=== PATIENT | female | born 1970 | race Caucasian/White ===

== ENCOUNTER → 2017-08-23 | Outpatient (CLI) | payer MEDICARE, OTHER ==
--- NOTE | 2017-08-23 19:08 | WOMENS IMAGING REPORT ---
EXAM DESCRIPTION: 3D SCREENING MAMMO BILAT COMPLETED DATE/TIME: 08/23/2017 11:35 am REASON FOR STUDY: SCREENING MAMMO Z12.31 ENCNTR SCREEN MAMMOGRAM FOR MALIGNANT NEOPLASM OF YOON COMPARISON: 2014 TECHNIQUE: Standard craniocaudal and mediolateral oblique views of each breast recorded using digita l acquisition and breast tomosynthesis. LIMITATIONS: None. FINDINGS: No masses, calcifications or architectural distortion. No areas of suspicion. Read with the assistance of CAD. .[facility] - R2 Cenova Version 1.3 .[facility] - R2 Cenova Version 1.3 .[facility] - R2 Cenova Version 2.4 .[facility] [place] R2 Cenova Version 2.4 .[facility] - R2 Yarn Rewinder Version 9.2 IMPRESSION: NORMAL MAMMOGRAM. BIRADS 1. BREAST DENSITY: c. The breasts are heterogeneously dense, which may obscure small masses. BIRAD: 1 NEGATIVE RECOMMENDATION: ROUTINE SCREENING Please continue yearly bilateral screening tomosynthesis in August 2018 COMMENT: The patient has been notified of the results by letter per SA requirements. Additional no tification policies are in place for contacting patient with suspicious or incomplete findings. Quality ID #[id number]: The [employer] recommends an annual screening mammogram for women aged 40 years or over. This facility utilizes a reminder system to ensure that all patients receive reminder letters, and/or direct phone calls for appointments. This includes reminders for routine scr eening mammograms, diagnostic mammograms, or other Breast Imaging Interventions when appropriate. Th is patient will be placed in the appropriate reminder system. The [employer] (ACR) has developed recommendations for screening MRI of the breast s in certain patient populations, to be used in conjunction with mammography. Breast MRI surveillanc e may be appropriate for women with more than 20% lifetime risk of developing breast cancer as deter mined by genetic testing, significant family history of the disease, or history of mantle radiation f or Hodgkins Disease. ACR Practice Guidelines 2008. DBT Technology DBT is a type of tomographic mammography. With conventional mammography, overlapping breast tissue ma y make lesions difficult to detect, even with good compression. DBT uses an x-ray tube that rotates a round the breast, taking images at different angles. These images are then combined to create thin sl ices of the breast that the radiologist can view as a 3D reconstruction. The [employer] unit can perform full-field digital mammograms (2D imaging); or DBT (3D imaging); or both, in a combination mode that quickly performs both the mammogram and the tomosynthesis scan while the breast is still compressed. PQRS 6045F: Fluoroscopic imaging is not utilized for breast tomosynthesis. TECHNICAL DOCUMENTATION: FINDING NUMBER: (1) ASSESSMENT: (1) JOB ID: [id number] [employer]- All Rights Reserved
== END ==
LOC: WI 11:12
PROVIDERS: ATTEND Nurse Practitioner Family
DX: Z12.31 Encounter for screening mammogram for malignant neoplasm of breast (principal)
CPT/HCPCS: 77063; G0202; 77067

== ENCOUNTER 2018-06-30 10:18 | Emergency (ER) | payer MEDICARE ==
--- NOTE | 2018-06-30 11:46 | RADIOLOGY REPORT (SQ) ---
EXAM DESCRIPTION: ANKLE LEFT COMPLETE COMPLETED DATE/TIME: 06/30/2018 10:50 am REASON FOR STUDY: Left ankle injury fell, painful flexion at the ankle COMPARISON: None. NUMBER OF VIEWS: Three views. TECHNIQUE: AP, lateral, and oblique radiographic images acquired of the left ankle. LIMITATIONS: None. FINDINGS: MINERALIZATION: Normal. BONES: No acute fracture or dislocation. No worrisome bone lesions. JOINTS: No effusions. SOFT TISSUES: Mild lateral soft tissue swelling. No foreign body. OTHER: No other significant finding. IMPRESSION: No acute fracture or malalignment TECHNICAL DOCUMENTATION: JOB ID: [id number] [employer]- All Rights Reserved Reading location - IP/workstation name: [email or web address]
[2018-06-30] MEDS ORDERED: HYDROCODONE/ACETAMINOPHEN 5-325 MG (6 TAB/ER DISP) PO PRN (12:14)
--- NOTE | 2018-06-30 12:15 | ER Document Report ---
HPI - HPI Pain Level: 3 Notes: Patient presents with chief complaint of left ankle pain times 1 day. Patient reports she had an object fall on her ankle. Patient complains of ankle pain and swelling at this time. - REPRODUCTIVE Reproductive: DENIES: : Past Medical History - General Information source: Patient - Social History Smoking Status: Never Smoker Lives with: Family Family History: None GI Medical History: Reports: Hx Gastroesophageal Reflux Disease Psychiatric Medical History: Reports: Hx Anxiety, Hx Depression - anxiety, insomnia Past Surgical History: Reports: Hx Orthopedic Surgery - right hip scope - Immunizations Hx Diphtheria, Pertussis, Tetanus Vaccination: Yes - unknown Vertical Provider Document - CONSTITUTIONAL Notes: PHYSICAL EXAMINATION: GENERAL: Well-appearing, well-nourished and in no acute distress. HEAD: Atraumatic, normocephalic. EYES: Pupils equal round extraocular movements intact, conjunctiva are normal. ENT: Nares patent NECK: Normal range of motion LUNGS: No respiratory distress Musculoskeletal: Mild swelling and ecchymosis noted to left ankle. Capillary refill less than 3 seconds, normal motor and sensation distal to injury. NEUROLOGICAL: Normal speech. PSYCH: Normal mood, normal affect. SKIN: Warm, Dry, normal turgor, no rashes or lesions noted. - INFECTION CONTROL TRAVEL OUTSIDE OF THE [place] IN LAST 30 DAYS: No Course - Re-evaluation Re-evalutation: X-rays negative for any acute findings. Patient placed in ankle stirrup splint. Offered crutches but patient declined as she states that she has a history of a surgery to the left ankle and will not be able to bear weight appropriately on crutches. Patient reports that she has a wheelchair at home she can use. Patient to follow-up with orthopedics if pain not improving over the next 7-10 days. - Vital Signs Vital signs: Temp Pulse Resp BP Pulse Ox 98.6 F 103 H 16 149/97 H 100 06/30/18 10:21 06/30/18 10:21 06/30/18 10:21 06/30/18 10:21 06/30/18 10:21 Procedures - Immobilization Left ankle Pre-Proc Neuro Vasc Exam: Normal Immobilizer type: Ankle stirrup Post-Proc Neuro Vasc Exam: Normal Discharge - Discharge Clinical Impression: Ankle sprain Qualifiers: Encounter type: initial encounter Involved ligament of ankle: unspecified ligament Laterality: left Qualified Code(s): S93.402A - Sprain of unspecified ligament of left ankle, initial encounter Condition: Stable Disposition: HOME, SELF-CARE Additional Instructions: SPRAINED ANKLE: Your sprained ankle results from stretching or tearing of the ligaments which support the ankle. This usually results from twisting the foot inward and under. The ligaments will require time and protection in order to heal properly. Many ankle sprains are quite disabling, and should be taken seriously. The usual treatment for an ankle sprain is cold packs; protection with tape , splints, or wraps; elevation; and staying off the ankle for at least a day. As the ankle improves, you can walk IF it's not painful to bear weight. Sports are best postponed until healing is complete. More serious sprains usually require strengthening exercises after early healing. Your physician has assessed the seriousness of the ligament injury to your ankle. However, the treatment may change, depending on how your ankle progresses. If further exams were recommended, it is important that you follow through. Call the doctor if your foot becomes numb, painful, or severely swollen. ANKLE STIRRUP SPLINT: You are to use an ankle brace called a stirrup splint. This type of brace allows you to place greater stresses on the ankle without risk of re-injury, and is often used for more severe ankle injuries such as avulsion fractures and ligament ruptures. The splint can be worn over a sock or tape. For proper support, wear the splint with a shoe over it. It's important that the splint fit properly. Adjust the heel tension, if needed. If your splint has air bladders, peel back the bottom of each air bladder, then move the Velcro attachment of the heel strap up or down. Air bladder pressure can be adjusted by pulling up the valve at the top, threading the air tube down into the main bladder, then blowing air into the bladder or squeezing it out. The two sides of the stirrup can be moved forward or back on your ankle by changing the attachment of the main straps. If you are unable to use the ankle comfortably in the splint, return for re -evaluation. ICE & ELEVATION: Apply ice packs frequently against the painful area. Many different schedules are recommended, such as "20 minutes on, 20 minutes off" or "one hour ice, two hours rest." If you need to work, you may need to go longer between ice treatments. You should plan to have the area ice packed AT LEAST one- fourth of the time. The ice should be applied over the wrap, tape, or splint, or over a layer of cloth -- not directly against the skin. Some ice bags have a built-in cloth and can be put directly on the skin. Your injured part should be elevated as much as possible over the next 48 hours. Try to keep the injury above the level of the heart. Avoid use of the injured area. Elevation and rest will decrease the swelling. USE OF [id number] IBUPROFEN: Ibuprofen (Advil, Nuprin, Medipren, Motrin IB) is a medication for fever and pain control. In addition, it has anti- inflammatory effects which may be beneficial, especially in the treatment of injuries. It's best to take ibuprofen with food. Persons with ulcer disease or allergy to aspirin should notify their physician of this before taking ibuprofen. Ibuprofen can be given every four to six hours, for a total of four doses daily. Age Pain or fever dose Antiinflammatory dose 15-adult 400 mg (2 tab) 600 mg (3 tab) ORAL NARCOTIC MEDICATION: You have been given a prescription for pain control. This medication is a narcotic. It's best taken with food, as nausea can result if taken on an empty stomach. Don't operate machinery or drive within six hours of taking this medication. Do not combine this medicine with alcohol, or with any medication which can cause sedation (such as cold tablets or sleeping pills) unless you get permission from the physician. Narcotics tend to cause constipation. If possible, drink plenty of fluids and eat a diet high in fiber and fruits. Please be aware that prescription narcotics also have the potential for abuse. People become addicted to these medications because of the general sense of wellbeing that they induce. This feeling along with a significant reduction in tension, anxiety, and aggression provides a stimulating seductive quality to these drugs. Once your pain is under control, we encourage you to discard your unused narcotics. FOLLOW-UP CARE: If you have been referred to a physician for follow-up care, call the physician s office for an appointment as you were instructed or within the next two days. If you experience worsening or a significant change in your symptoms, notify the physician immediately or return to the Emergency Department at any time for re-evaluation.
[2018-06-30 12:45] VITALS: BP 153/102
== END 2018-06-30 12:45 | disposition home or self-care (01) ==
LOC: ER 10:18
PROC: 2W3RX1Z Immobilization of Left Lower Leg using Splint (ICD-10-PCS; principal; 2018-06-30)
DX: S93.402A Sprain of unspecified ligament of left ankle, initial encounter (principal); M25.572 Pain in left ankle and joints of left foot; W20.8XXA Other cause of strike by thrown, projected or falling object, initial encounter; Y93.9 Activity, unspecified; Y92.9 Unspecified place or not applicable; Y99.9 Unspecified external cause status; K21.9 Gastro-esophageal reflux disease without esophagitis; F41.9 Anxiety disorder, unspecified; F32.9 Major depressive disorder, single episode, unspecified
CPT/HCPCS: 29515; 99283; 73610; L1902; A9270

== ENCOUNTER → 2018-10-28 | Outpatient (CLI) | payer MEDICARE ==
--- NOTE | 2018-10-28 14:56 | WOMENS IMAGING REPORT ---
EXAM DESCRIPTION: BILAT SCREENING MAMMO W/CAD COMPLETED DATE/TIME: 10/28/2018 2:31 pm REASON FOR STUDY: SCREENING MAMMO Z12.31 ENCNTR SCREEN MAMMOGRAM FOR MALIGNANT NEOPLASM OF YOON COMPARISON: 2014, 2016 TECHNIQUE: Standard craniocaudal and mediolateral oblique views of each breast recorded using digita l acquisition. LIMITATIONS: None. FINDINGS: No masses, calcifications or architectural distortion. No areas of suspicion. Read with the assistance of CAD. .[facility] - R2 Cenova Version 1.3 .[facility] - R2 Cenova Version 1.3 .[facility] - R2 Cenova Version 2.4 .[facility] [place] - R2 Cenova Version 2.4 .[facility] - R2 Relay Dispatcher Version 9.2 IMPRESSION: NORMAL MAMMOGRAM. BIRADS 1. BREAST DENSITY: c. The breasts are heterogeneously dense, which may obscure small masses. BIRAD: 1 NEGATIVE RECOMMENDATION: ROUTINE SCREENING COMMENT: The patient has been notified of the results by letter per SA requirements. Additional no tification policies are in place for contacting patient with suspicious or incomplete findings. Quality ID #[id number]: The [employer] recommends an annual screening mammogram for women aged 40 years or over. This facility utilizes a reminder system to ensure that all patients receive reminder letters, and/or direct phone calls for appointments. This includes reminders for routine scr eening mammograms, diagnostic mammograms, or other Breast Imaging Interventions when appropriate. Th is patient will be placed in the appropriate reminder system. The [employer] (ACR) has developed recommendations for screening MRI of the breast s in certain patient populations, to be used in conjunction with mammography. Breast MRI surveillanc e may be appropriate for women with more than 20% lifetime risk of developing breast cancer as deter mined by genetic testing, significant family history of the disease, or history of mantle radiation f or Hodgkins Disease. ACR Practice Guidelines 2008. TECHNICAL DOCUMENTATION: FINDING NUMBER: (1) ASSESSMENT: (1) JOB ID: [id number] [employer]- All Rights Reserved Reading location - IP/workstation name: [email or web address]
== END ==
LOC: WI 14:12
PROVIDERS: ATTEND Nurse Practitioner Family
DX: Z12.31 Encounter for screening mammogram for malignant neoplasm of breast (principal)
CPT/HCPCS: 77067

== ENCOUNTER 2020-06-06 12:02 | Emergency (ER) | payer OTHER, MEDICARE ==
[2020-06-06 14:27] LABS: ABSOLUTE LYMPHOCYTES (AUTO) 1.6 10^3/uL (0.5-4.7); ABSOLUTE MONOCYTES (AUTO) 0.6 10^3/uL (0.1-1.4); ABSOLUTE NEUT (AUTO) 2.2 10^3/uL (1.7-8.2); BASOPHILS % (AUTO) 0.4 % (0-2); EOSINOPHILS % (AUTO) 0.9 % (0-6); HEMATOCRIT 44.1 % (36.0-47.0); HEMOGLOBIN 14.9 g/dL (12.0-15.5); LYMPHOCYTES % (AUTO) 36.8 % (13-45); MEAN CORPUSCULAR HEMOGLOBIN 31.7 pg (27.0-33.4); MEAN CORPUSCULAR HGB CONC 33.8 g/dL (32.0-36.0); MEAN CORPUSCULAR VOLUME 94 fl (80-97); MONOCYTES % (AUTO) 12.5 % (3-13); PLATELET COUNT 242 10^3/uL (150-450); RED BLOOD COUNT 4.69 10^6/uL (3.72-5.28); RED CELL DISTRIBUTION WIDTH 13.4 % (11.5-14.0); SEGMENTED NEUTROPHILS % (AUTO) 49.4 % (42-78); TOTAL CELLS COUNTED % (AUTO) 100 %; WHITE BLOOD COUNT 4.5 10^3/uL (4.0-10.5)
[2020-06-06 14:43] LABS: ALBUMIN 4.8 g/dL (3.5-5.0); ALKALINE PHOSPHATASE 57 U/L (38-126); ANION GAP 9 (5-19); ASPARTATE AMINO TRANSFERASE 23 U/L (14-36); BILIRUBIN,TOTAL 0.4 mg/dL (0.2-1.3); BLOOD UREA NITROGEN 7 mg/dL (7-20); CALCIUM 9.3 mg/dL (8.4-10.2); CARBON DIOXIDE 25 mmol/L (22-30); CHLORIDE 104 mmol/L (98-107); GLUCOSE 89 mg/dL (75-110); POTASSIUM 4.1 mmol/L (3.6-5.0); TOTAL PROTEIN 7.8 g/dL (6.3-8.2)
--- NOTE | 2020-06-06 14:47 | RADIOLOGY REPORT (SQ) ---
EXAM DESCRIPTION: L SPINE W/FLEX/EXT IMAGES COMPLETED DATE/TIME: 06/06/2020 1:59 pm REASON FOR STUDY: back pain, prior fusion L4-S1 COMPARISON: Lumbar spine radiographs 09/27/2012 NUMBER OF VIEWS: Seven views. TECHNIQUE: AP, lateral, obliques, flexion, extension, and sacral radiographic images acquired. LIMITATIONS: None. FINDINGS: MINERALIZATION: Normal. SEGMENTATION: Normal. No transitional anatomy. ALIGNMENT: There similar mild levoconvex curvature of the lumbar spine. FLEXION/EXTENSION: No instability. VERTEBRAE: Maintained height. No fracture or worrisome bone lesion. DISCS: Preserved height. No significant osteophytes or end plate irregularity. POSTERIOR ELEMENTS: Pedicles and facets are intact. No pars defect or posterior arch defects. HARDWARE: Anterior fusion at L4-5 and L5-S1. PARASPINAL SOFT TISSUES: Normal. PELVIS: Intact as visualized. No fractures or worrisome bone lesions. SI joints intact. OTHER: No other significant finding. IMPRESSION: Postoperative changes from anterior fusion at L4-5 and L5-S1 without evidence for acute fracture. No abnormal translation between flexion and extension. TECHNICAL DOCUMENTATION: JOB ID: [id number] [employer]- All Rights Reserved Reading location - IP/workstation name: [email or web address]
--- NOTE | 2020-06-06 15:58 | ER Document Report ---
HPI - HPI Pain Level: 5 Notes: 49-year-old female with past medical history of chronic back pain presenting today with exacerbation of her chronic back pain. She had a spinal fusion of her L4-S1 as she was having some compression). This was performed in 2016. States that her back is swollen. States she has some numbness and tingling in her thighs. States she is having some difficulty walking. Primary care is the [facility] but she also sees [facility]. Takes Marinol for her pain. Has been on multiple pain medications in the past. She denies any saddle anesthesia, loss of bowel or bladder control. - REPRODUCTIVE LMP: 05/23/2020 Reproductive: DENIES: : Past Medical History - Social History Smoking Status: Never Smoker Chew tobacco use (# tins/day): No Frequency of alcohol use: Social Drug Abuse: Marijuana Family History: None Patient has homicidal ideation: No - Past Medical History Cardiac Medical History: Reports: None Pulmonary Medical History: Reports: None EENT Medical History: Reports: None Neurological Medical History: Reports: None Endocrine Medical History: Reports: None Renal/ Medical History: Reports: None. Denies: Hx Peritoneal Dialysis Malignancy Medical History: Reports: None GI Medical History: Reports: Hx Gastroesophageal Reflux Disease Musculoskeletal Medical History: Reports Hx Sciatica, Reports Other Other: chronic back pain Psychiatric Medical History: Reports: Hx Anxiety, Hx Depression - anxiety, insomnia Past Surgical History: Reports: Hx Orthopedic Surgery - right hip scope - Immunizations Hx Diphtheria, Pertussis, Tetanus Vaccination: Yes - unknown Vertical Provider Document - INFECTION CONTROL TRAVEL OUTSIDE OF THE [place] IN LAST 30 DAYS: No - HEENT HEENT: Atraumatic - NECK Neck: Normal Inspection - RESPIRATORY Respiratory: Breath Sounds Normal, No Respiratory Distress, Chest Non-Tender - GI/ABDOMEN Gastrointestinal: Abdomen Soft, Abdomen Non-Tender - BACK Notes: Low back is tender to palpation along her paraspinals. She has 5 out of 5 strength in her lower extremities. She has good sensation to light touch. She has no saddle anesthesia, no loss of bowel or bladder control. - MUSCULOSKELETAL/EXTREMETIES Notes: 5/5 strength in bilateral lower extremities. Good bilateral pulses at the dorsalis pedis. good sensation to light touch in all aspects of her bilateral lower extremities. Course - Re-evaluation Re-evalutation: 06/06/20 15:58 X-ray showed no acute abnormalities or fractures. Her labs are unremarkable at this time. She has no neurological deficits noted on physical exam. No saddle anesthesia or loss of bowel or bladder control. I discussed these findings with the patient. I did discuss pain control with the patient that her symptoms are likely due to an acute exacerbation of her chronic low back pain. I will go ahead and order a dose of steroids and Flexeril to help alleviate her pain. Patient is ambulatory. I did discuss with her that she will need to follow-up with her primary care provider for additional management of her pain. Patient is in agreement with this plan. I discussed return precautions to include worsening symptoms or development of new symptoms. All questions answered. - Vital Signs Vital signs: Temp Pulse Resp BP Pulse Ox 98.9 F 76 16 130/89 H 100 06/06/20 12:49 06/06/20 12:49 06/06/20 12:49 06/06/20 12:49 06/06/20 12:49 - Laboratory Result Diagrams: 06/06/20 14:13 06/06/20 14:13 Discharge - Discharge Clinical Impression: Chronic back pain Qualifiers: Back pain location: low back pain Back pain laterality: bilateral Sciatica presence: with sciatica Sciatica laterality: bilateral sciatica Qualified Code(s): M54.42 - Lumbago with sciatica, left side Condition: Stable Disposition: HOME, SELF-CARE Instructions: Ice Packs ([facility]), Low Back Pain ([facility]) Additional Instructions: I have prescribed youmedications to help with your low back pain. Please follow-up with your primary care provider for continued low back pain. Please turn to the emergency department for worsening symptoms or development of new symptoms. Prescriptions: Prednisone [Deltasone 10 mg Tablet] 10 mg PO ASDIR PRN #21 tablet PRN Reason: Cyclobenzaprine HCl [Flexeril 10 mg Tablet] 10 mg PO TIDP PRN #15 tab PRN Reason: Referrals: ESTHER PAK CRNP [Primary Care Provider] - Follow up as needed
[2020-06-06 16:29] VITALS: BP 122/80
== END 2020-06-06 16:28 | disposition home or self-care (01) ==
LOC: ER 12:02
DX: M54.42 Lumbago with sciatica, left side (principal); M54.9 Dorsalgia, unspecified; G89.29 Other chronic pain; R20.0 Anesthesia of skin; R26.2 Difficulty in walking, not elsewhere classified
CPT/HCPCS: 36415; 72114; 80053; 85025; 99284